=== PATIENT | female | born 1980 | race Caucasian/White ===

== ENCOUNTER 2018-06-11 11:57 | Emergency (ER) | payer OTHER ==
[2018-06-11 12:09] VITALS: BP 130/73
--- NOTE | 2018-06-11 12:16 | EDPHY ---
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 The patient denies any acute complaints of numbness, weakness or decreased movement. She denies significant past medical history. REVIEW OF SYSTEMS: A comprehensive 10 point review of systems is otherwise negative aside from elements mentioned in the history of present illness. Source: Patient - Personal History LMP (Females 10-55): 15-21 Days Ago Current Tetanus Diphtheria and Acellular Pertussis (TDAP): Yes - Medical/Surgical History Hx Asthma: No Hx Chronic Respiratory Disease: No Hx Diabetes: No Hx Cardiac Disease: No Hx Renal Disease: No Hx Cirrhosis: No Hx Alcoholism: No Hx HIV/AIDS: No Hx Splenectomy or Spleen Trauma: No Other PMH: anxiety - Social History Smoking Status: Never smoked - Physical Exam Exam: General Appearance: Alert, no distress Neurological: Normal motor sensory function noted in the left upper extremity Skin: Small puncture wound noted to the palmar aspect of the left hand adjacent to the 4th and 5th metacarpal Musculoskeletal: Normal range of motion Constitutional: Initial Vital Signs Temperature (C) 36.7 C 06/11/18 12:07 Heart Rate 66 06/11/18 12:07 Respiratory Rate 18 06/11/18 12:07 Blood Pressure 130/73 H 06/11/18 12:07 O2 Sat (%) 100 06/11/18 12:07 O2 Delivery Mode Room Air Allergies/Adverse Reactions: No Known Allergies Allergy (Unverified 06/11/18 12:06) Home Medications: Medication Instructions Recorded Abilify 06/11/18 Amoxicillin/Clavulanate Pot 875 mg PO BID #20 tab 06/11/18 [Augmentin 875 mg tablet] Effexor Xr 06/11/18 Wellbutrin 100mg (*) 06/11/18 Medical Decision Making ED Course/Re-evaluation: The patient's tetanus shot is up-to-date. She is given post bite prophylaxis with Augmentin. She is given customary aftercare instructions and return precautions. Departure - Departure Disposition: Home, Routine, Self-Care Clinical Impression: Cat bite of hand Condition: Good Instructions: Animal Bite (ED) Additional Instructions: 1. Take all of your antibiotics as prescribed for next 10 days. 2. Return to the ED for any increased pain, redness, swelling or fever as this may be the sign of a progressive infection.
== END 2018-06-11 12:25 | disposition home or self-care (01) ==
DX: S61.432A Puncture wound without foreign body of left hand, initial encounter (principal); W55.01XA Bitten by cat, initial encounter; Y93.K9 Activity, other involving animal care; Y92.59 Other trade areas as the place of occurrence of the external cause; Y99.0 Civilian activity done for income or pay